=== PATIENT | female | born 1945 | race Caucasian/White ===

== ENCOUNTER 2018-04-16 06:13 | Day surgery (SDC) | payer OTHER ==
[~2018-04-16 06:13] MED LIST: CEFAZOLIN 2 GM/50 ML (PMX) 50 ML IVPB; SOD CHLORIDE 0.9% 1,000 ML IV
[2018-04-16] MEDS ORDERED: OXYCODONE/ACETAMINOPHEN (5/325) TAB PO (08:00)
[2018-04-16] MEDS ORDERED: DIPHENHYDRAMINE 50 MG INJ IV (08:00)
[2018-04-16] MEDS ORDERED: ONDANSETRON 4 MG INJ IV (08:00)
[2018-04-16] MEDS ORDERED: MEPERIDINE 25 MG INJ IV (08:00)
[2018-04-16] MEDS ORDERED: HYDROmorphONE 1 MG/5 ML IV SYRINGE IV ×2 (08:00)
[2018-04-16] MEDS ORDERED: ROCURONIUM 50 MG INJ (08:11)
[2018-04-16] MEDS ORDERED: CEFAZOLIN 1 GM INJ ×2 (08:11→08:43)
[2018-04-16] MEDS ORDERED: PROPOFOL 20 ML (08:11)
[2018-04-16] MEDS ORDERED: MIDAZOLAM 1 MG/ML 2 ML INJ (08:11)
[2018-04-16] MEDS ORDERED: ONDANSETRON 4 MG INJ (08:11)
[2018-04-16] MEDS ORDERED: METOCLOPRAMIDE 10 MG INJ (08:11)
[2018-04-16] MEDS ORDERED: ROPIVACAINE 0.2% 20 ML VIAL (08:12)
[2018-04-16] MEDS ORDERED: NEOSTIGMINE 3 MG/3 ML SYRINGE (08:58)
[2018-04-16] MEDS ORDERED: GLYCOPYRROLATE 0.4 MG INJ (08:58)
[2018-04-16] MEDS: BUPIVACAINE 0.25% (MPF) 30 ML INJ (09:08)
[2018-04-16] MEDS ORDERED: HYDROCODONE/APAP (5/325) TAB PO (09:30)
[2018-04-16] MEDS: OXYCODONE/ACETAMINOPHEN (5/325) TAB PO (09:38)
[2018-04-16] MEDS: HYDROmorphONE 1 MG/5 ML IV SYRINGE IV (11:19)
== END 2018-04-16 14:50 | disposition home or self-care (01) ==
LOC: SDS 06:13
DX: K40.90 Unilateral inguinal hernia, without obstruction or gangrene, not specified as recurrent (principal); E78.5 Hyperlipidemia, unspecified; Z90.710 Acquired absence of both cervix and uterus
CPT/HCPCS: 49507